=== PATIENT | male | born 1960 | race Caucasian/White ===

== ENCOUNTER 2017-12-16 06:58 | Emergency (ER) | payer OTHER ==
[~2017-12-16] VITALS: Ht 185.4 cm; Wt 95.3 kg
[~2017-12-16 06:58] MED LIST: AVELOX ABC PAC400 MG PO; EXFORGE 5-160 M1 TAB PO; PRILOSEC; ZYRTEC10 MG PO; [UNRECOGNIZED DRUG - OTHER]; [UNRECOGNIZED DRUG - OTHER] PO
[2017-12-16] MEDS ORDERED: LOSARTAN POTAS100 MG (07:33)
== END 2017-12-16 12:12 | disposition home or self-care (01) ==
LOC: ER 06:58 → CPU-OBS 07:12 → ER 12:12
DX: R07.89 Other chest pain (principal)

== ENCOUNTER → 2018-08-29 | Emergency (ER) | payer OTHER ==
[~2018-08-29] VITALS: Ht 185.4 cm; Wt 87.5 kg
[~2018-08-29] MED LIST changes: +AIRBORNE EFFER1 EACH PO; +KETO10TA2 PO; +LOSARTAN POTAS100 MG; +MUCINEX DM ER1 EAC1 PO; +OSEL75CA PO; +PEPCID AC20 MG PO; +ZOFRAN ODT4 MG SL
== END | disposition home or self-care (01) ==
LOC: ER 15:00
DX: J11.1 Influenza due to unidentified influenza virus with other respiratory manifestations (principal); E86.0 Dehydration; K29.70 Gastritis, unspecified, without bleeding